=== PATIENT | male | born 1935 | race Caucasian/White ===

== ENCOUNTER 2017-07-17 08:18 | Outpatient (CLI) | payer OTHER | END 2017-07-17 08:56 | disposition home or self-care (01) | LOC: RAD 501 08:18 | DX: M47.816 Spondylosis without myelopathy or radiculopathy, lumbar region (principal) ==

== ENCOUNTER 2018-02-20 08:29 | Outpatient (CLI) | payer OTHER | END 2018-02-20 08:38 | disposition home or self-care (01) | LOC: NUCLEAR 08:29 | DX: C20 Malignant neoplasm of rectum (principal) | CPT/HCPCS: 78815; A9552 ==

== ENCOUNTER 2018-03-31 07:46 | Emergency (ER) | payer OTHER ==
[~2018-03-31] VITALS: Ht 167.6 cm; Wt 64.9 kg
[~2018-03-31 07:46] MED LIST: CORGARD40 MG PO; COUMADIN3 MG PO; ULTRACET PO
== END 2018-03-31 16:05 | disposition home or self-care (01) ==
LOC: ER 07:46
DX: K57.30 Diverticulosis of large intestine without perforation or abscess without bleeding (principal); N20.0 Calculus of kidney

== ENCOUNTER 2019-10-19 07:58 | Outpatient (CLI) | payer OTHER | END 2019-10-19 08:14 | disposition home or self-care (01) | LOC: NUCLEAR 07:58 | PROVIDERS: ATTEND Internal Medicine Hematology & Oncology | DX: C20 Malignant neoplasm of rectum (principal) | CPT/HCPCS: 78815; A9552 ==

== ENCOUNTER 2020-05-31 08:20 | Outpatient (CLI) | payer OTHER | END 2020-05-31 08:57 | disposition home or self-care (01) | LOC: NUCLEAR 08:20 | PROVIDERS: ATTEND Surgery | DX: C20 Malignant neoplasm of rectum (principal); R19.5 Other fecal abnormalities; R19.4 Change in bowel habit; R97.0 Elevated carcinoembryonic antigen [CEA]; R93.5 Abnormal findings on diagnostic imaging of other abdominal regions, including retroperitoneum; Z08 Encounter for follow-up examination after completed treatment for malignant neoplasm | CPT/HCPCS: 78816; A9552 ==